=== PATIENT | male | born 2000 | race Caucasian/White ===

== ENCOUNTER → 2021-05-03 13:33 | Outpatient (BNVA) | payer SELFPAY | PROVIDERS: Visit Provider Emergency Medicine | DX: A74.9 Chlamydial infection, unspecified (principal); A60.02 Herpesviral infection of other male genital organs; K25.9 Gastric ulcer, unspecified as acute or chronic, without hemorrhage or perforation | CPT/HCPCS: 81000; 87491; 87591; 87661 ==